=== PATIENT | female | born 1965 | race Asian ===

== ENCOUNTER 2021-06-27 21:09 | Emergency (ER) | payer OTHER ==
--- OUTSIDE RECORDS SUMMARY | 2021-06-27 21:11 | XMS REPORT | Continuity of Care Document ---
:1965 Author Organization [facility] t Address [address] [place] [address] Care Team Providers Name Role Phone Taylor Attending Clinician Unavailable Shield Attending Clinician Unavailable Shield Admitting Clinician Unavailable Payers Payer Name Policy Type Policy Number Effective Date Expiration Date Lenin tobar MIRIAM () [id number] 00:00:00 Problems This patient has no known problems. Allergies, Adverse Reactions, Alerts This patient has no known allergies or adverse reactions. Social History Smoking Status Start Date Stop Date Source [facility]oker [facility] Medications Ordered Filled Start Stop Current Ordering Indication Dosage Frequency Signature Comments Components Source Medication Medication Date Date Medication? Clinician (SIG) Name Name Kenalog 40 Kenalog 40 2020-0 No Kenalog 40 [place] mg/mL mg/mL 6-04 mg/mL da suspension suspension 14:18: suspension Medical for for 00 for Group injectionTa injectionTa injectionT ke 1 mL by ke 1 mL by kurtis 1 mL injection injection by route. route. injection route. Kenalog 40 Kenalog 40 No 1mL Kenalog 40 [place] mg/mL mg/mL mg/mL da suspension suspension suspension Medical for for for Group injection injection injection Take 1 mL Take 1 mL Take 1 mL by by by injection injection injection route. route. route. triamcinolo triamcinolo [facility]ol [facility] one da acetonide acetonide acetonide Medical 0.1 % 0.1 % 0.1 % Group topical topical topical cream APPLY cream APPLY cream A THIN A THIN APPLY A LAYER TO LAYER TO THIN LAYER THE THE TO THE AFFECTED AFFECTED AFFECTED AREA(S) BY AREA(S) BY AREA(S) BY TOPICAL TOPICAL TOPICAL ROUTE 2 ROUTE 2 ROUTE 2 TIMES PER TIMES PER TIMES PER DAY DAY DAY Immunizations Ordered Immunization Filled Immunization Date Status Commen ts Source Name Name influenza, influenza, 2018-12-11 Completed [facility] injectable, injectable, 00:00:00 [facility] p quadrivalent quadrivalent Vital Signs Vital Name Observation Time Observation Value Comments Source BP Diastolic 2019-08-08 00:00:00 78 mm[Hg] [facility] Height 2019-08-08 00:00:00 60 [in_i] [facility] BMI (Body Mass 2019-08-08 00:00:00 26.4 kg/m2 [facility] Medical Index) Group BP Systolic 2019-08-08 00:00:00 114 mm[Hg] [facility] Body Weight 2019-08-08 00:00:00 2160 [oz_av] [facility] BP Diastolic 2019-04-17 00:00:00 75 mm[Hg] [facility] Height 2019-04-17 00:00:00 60 [in_i] [facility] BMI (Body Mass 2019-04-17 00:00:00 26.4 kg/m2 [facility] Medical Index) Group BP Systolic 2019-04-17 00:00:00 132 mm[Hg] [facility] Body Weight 2019-04-17 00:00:00 2160 [oz_av] [facility] BP Diastolic 2018-10-04 00:00:00 78 mm[Hg] [facility] Height 2018-10-04 00:00:00 60 [in_i] [facility] BMI (Body Mass 2018-10-04 00:00:00 27.2 kg/m2 [facility] Medical Index) Group BP Systolic 2018-10-04 00:00:00 109 mm[Hg] [facility] Body Weight 2018-10-04 00:00:00 2232 [oz_av] [facility] Procedures This patient has no known procedures. Plan of Care Planned Activity Planned Date Details Comments Source Instructions [facility] Encounters Start End Encounter Admission Attending Care Care Encounter Source Date/Time Date/Time Type Type Clinicians Facility Department ID 2021-03-31 Outpatient Taylor, [facility] [id number] [facility] 14[facility]04:52 Charleen [id number] [facility] 2021-03-31 Outpatient Taylor, [facility] [id number] [facility] 14:04:40 Charleen [id number] [facility] 2020-12-29 2020-12-29 Outpatient [facility] [id number] [facility] [id number] [facility] 2020-02-18 2020-02-18 Outpatient [facility] [id number] [facility] 01:03:00 01:03:00 [facility] 2020-02-18 2020-02-18 Outpatient [facility] MMG [id number] [facility] 01:03:00 01:03:00 [facility] 2020-01-22 2020-01-22 Outpatient [facility] [id number] [facility] 02:30:00 02:30:00 [facility] 2020-01-14 2020-01-14 Outpatient [facility] MMG [id number] [facility] 01:03:00 01:03:00 [facility] 2019-08-27 2019-08-27 Outpatient [facility] MMG [id number] [place] 12:23:00 12:23:00 06[facility] 2019-08-08 2019-08-08 Outpatient [facility] MMG [id number] [place] 04:46:00 04:46:00 [facility] 2019-08-08 2019-08-08 Chloé VALENZUELA [place] - [id number] [facility] 00:00:00 00:00:00 Discovery juan Alexander FLAVOR EXTRACTOR: [address] [place] [address] , Ph. 2019-06-04 2019-06-04 [place] [id number] [place] 02:28:00 02:28:00 [id number] [facility] 2019-04-17 2019-04-17 [place] [id number] [place] 06:51:00 06:51:00 [id number] [facility] 2019-04-17 2019-04-17 Chloé VALENZUELA [place] - [id number] [facility] 00:00:00 00:00:00 Discovery juan Alexander FLAVOR EXTRACTOR: [address] [place] [address] [place] [address] , Ph. 2018-10-04 2018-10-04 Chloé DOYLE [place] - [id number] [facility] 00:00:00 00:00:00 Discovery juan Alexander FLAVOR EXTRACTOR: [address] [place] [address] [place] [address] , Ph. Results This patient has no known results.
[2021-06-27] MEDS ORDERED: MORPHINE 4 MG/ML SYR ONE (23:14)
[2021-06-27] MEDS ORDERED: KETOROLAC 30 MG/ML INJ ONE (23:15)
[2021-06-27] MEDS ORDERED: DIPHENHYDRAMINE 50 MG/ML VIAL ONE (23:15)
[2021-06-27] MEDS ORDERED: NA CHLORIDE 0.9% 1,000 ML ONE (23:15)
[2021-06-27] MEDS ORDERED: ONDANSETRON 4 MG/2 ML VIAL ONE (23:15)
--- NOTE | 2021-06-28 00:24 | ER ---
Nurse's Notes [facility] Name: Malou Astorga Age: 55 yrs Sex: Female : 1965 Arrival Date: 06/27/2021 Time: 21:09 Bed 19 Private MD: Diagnosis: Headache;Migraine without aura, not intractable Presentation: 06/27 21:54 Chief complaint: Patient states: I have a headache and I started having vomiting and kd3 diarrhea today. Coronavirus screen: Vaccine status: Patient reports receiving the 2nd dose of the covid vaccine. Ebola Screen: No symptoms or risks identified at this time. Initial Sepsis Screen: Does the patient meet any 2 criteria? No. Patient's initial sepsis screen is negative. Does the patient have a suspected source of infection? No. Patient's initial sepsis screen is negative. Risk Assessment: Do you want to hurt yourself or someone else? Patient reports no desire to harm self or others. Onset of symptoms was June 27, 2021. 21:54 Method Of Arrival: Ambulatory kd3 21:54 Acuity: JEFFERY 3 kd3 Triage Assessment: 21:56 General: Appears in no apparent distress. Behavior is calm, cooperative. Pain: kd3 Complains of pain in headache. GI: Reports diarrhea, vomiting, since today. 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 - Social history:: Smoking status: unknown. Screenin:57 Abuse screen: Denies threats or abuse. Denies injuries from another. Nutritional kd3 screening: No deficits noted. Tuberculosis screening: No symptoms or risk factors identified. Fall Risk None identified. Assessment: 21:57 General: Appears uncomfortable, Behavior is calm, cooperative. Pain: Complains of pain kd3 in headache. Neuro: Level of Consciousness is awake, alert, obeys commands, Oriented to person, place, time, situation. Cardiovascular: Patient's skin is warm and dry. Respiratory: Airway is patent is compromised Trachea midline Respiratory effort is even, unlabored, Respiratory pattern is regular, symmetrical. GI: Abdomen is flat. Vital Signs: 21:54 BP 112 / 67; Pulse 67; Resp 16; Temp 98.0; Pulse Ox 98% on R/A; kd3 21:54 Weight 58.51 kg; Height 5 ft. 4 in. (162.56 cm); Pain 10/10; kd3 06/28 01:12 BP 127 / 91; Pulse 68; Resp 17; Pulse Ox 99% on R/A; kd3 06/27 21:54 Body Mass Index 22.14 (58.51 kg, 162.56 cm) kd3 ED Course: 06/27 21:09 Patient arrived in ED. mr 21:37 Burton Powell MD is Attending Physician. kdr 21:54 Autumn Phan RN is Primary Nurse. kd3 21:56 Triage completed. kd3 21:56 Arm band placed on right wrist. kd3 21:57 Patient has correct armband on for positive identification. kd3 06/28 01:14 No provider procedures requiring assistance completed. Inserted saline lock: 20 gauge kd3 in right antecubital area, using aseptic technique. IV discontinued, intact, bleeding controlled, No redness/swelling at site. Pressure dressing applied. Administered Medications: 06/27 23:22 Drug: morphine 4 mg Route: IVP; Site: right antecubital; 3 06/28 01:14 Follow up: Response: No adverse reaction 3 06/27 23:45 Drug: Zofran (Ondansetron) 4 mg Route: IVP; Site: right antecubital; 3 06/28 01:14 Follow up: Response: No adverse reaction 3 06/27 23:45 Drug: Ketorolac 15 mg Route: IVP; Site: right antecubital; 06/28 01:14 Follow up: Response: No adverse reaction 06/27 23:45 Drug: Benadryl (diphenhydrAMINE) 12.5 mg Route: IVP; Site: right antecubital; 3 06/28 01:14 Follow up: Response: No adverse reaction 3 06/27 23:46 Drug: NS 0.9% 1000 ml Route: IV; Rate: 1 bolus; Site: right antecubital; 06/28 01:14 Follow up: Response: No adverse reaction; IV Status: Completed infusion kd3 Outcome: 00:23 Discharge ordered by . kdr 01:14 Discharged to home ambulatory. kd3 01:14 Condition: stable 01:14 Discharge instructions given to patient, Instructed on discharge instructions, follow up and referral plans. medication usage, Demonstrated understanding of instructions, follow-up care, medications, Prescriptions given X 3. 01:15 Patient left the ED. kd3 Signatures: Burton Powell MD MD kdr Rivera, Mary mr Doucette, Kyli, RN RN kd3
--- NOTE | 2021-06-28 00:24 | EDPHYS ---
Physician Documentation [facility] Name: Malou Astorga Age: 55 yrs Sex: Female : 1965 Arrival Date: 06/27/2021 Time: 21:09 Bed 19 Private MD: ED Physician Burton Powell HPI: 06/28 05:12 This 55 yrs old Female presents to ER via Ambulatory with complaints of Vomiting. kdr 05:13 Patient began to have a headache early yesterday morning and since then started to have kdr some nausea vomiting and diarrhea. The headache is similar to prior headaches that she has had. This not significantly different in any way. The current symptoms along with this headache the nausea, vomiting and diarrhea not atypical for her presentation. He has no other complaints. She does not appear toxic but certainly is uncomfortable.. Onset: The symptoms/episode began/occurred yesterday. Severity of symptoms: At their worst the symptoms were moderate severe incapacitating in the emergency department the symptoms are unchanged. The patient has experienced similar episodes in the past, several times. The patient has not recently seen a physician. 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 - Social history:: Smoking status: unknown. ROS: 06/28 05:13 Constitutional: Negative for fever, chills, and weight loss, Eyes: Negative for injury, kdr pain, redness, and discharge, ENT: Negative for injury, pain, and discharge, Neck: Negative for injury, pain, and swelling, Cardiovascular: Negative for chest pain, palpitations, and edema, Respiratory: Negative for shortness of breath, cough, wheezing, and pleuritic chest pain, Back: Negative for injury and pain, : Negative for injury, bleeding, discharge, and swelling, MS/Extremity: Negative for injury and deformity, Skin: Negative for injury, rash, and discoloration, Psych: Negative for depression, anxiety, suicide ideation, homicidal ideation, and hallucinations, Allergy/Immunology: Negative for hives, rash, and allergies, Endocrine: Negative for neck swelling, polydipsia, polyuria, polyphagia, and marked weight changes, Hematologic/Lymphatic: Negative for swollen nodes, abnormal bleeding, and unusual bruising. Abdomen/GI: Positive for abdominal pain, nausea, vomiting, and diarrhea, Negative for constipation, abdominal cramps, abdominal distension, black/tarry stool, rectal pain, rectal bleeding. Neuro: Positive for headache, Negative for altered mental status, dizziness, gait disturbance, seizure activity, speech changes, syncope, tinnitus, tremor, visual changes. Exam: 05:13 Constitutional: This is a well developed, well nourished patient who is awake, alert, kdr and in mild distress. Head/Face: Normocephalic, atraumatic. Eyes: Pupils equal round and reactive to light, extra-ocular motions intact. Lids and lashes normal. Conjunctiva and sclera are non-icteric and not injected. Cornea within normal limits. Periorbital areas with no swelling, redness, or edema. Neck: Trachea midline, no thyromegaly or masses palpated, and no cervical lymphadenopathy. Supple, full range of motion without nuchal rigidity, or vertebral point tenderness. No Meningismus. Chest/axilla: Normal chest wall appearance and motion. Nontender with no deformity. No lesions are appreciated. Cardiovascular: Regular rate and rhythm with a normal S1 and S2. No gallops, murmurs, or rubs. Normal PMI, no JVD. No pulse deficits. Respiratory: Lungs have equal breath sounds bilaterally, clear to auscultation and percussion. No rales, rhonchi or wheezes noted. No increased work of breathing, no retractions or nasal flaring. Abdomen/GI: Soft, non-tender, with normal bowel sounds. No distension or tympany. No guarding or rebound. No evidence of tenderness throughout. Back: No spinal tenderness. No costovertebral tenderness. Full range of motion. Skin: Warm, dry with normal turgor. Normal color with no rashes, no lesions, and no evidence of cellulitis. MS/ Extremity: Pulses equal, no cyanosis. Neurovascular intact. Full, normal range of motion. Neuro: Awake and alert, GCS 15, oriented to person, place, time, and situation. Cranial nerves II-XII grossly intact. Motor strength 5/5 in all extremities. Sensory grossly intact. Cerebellar exam normal. Normal gait. Psych: Awake, alert, with orientation to person, place and time. Behavior, mood, and affect are within normal limits. Vital Signs: 06/27 21:54 BP 112 / 67; Pulse 67; Resp 16; Temp 98.0; Pulse Ox 98% on R/A; kd3 21:54 Weight 58.51 kg; Height 5 ft. 4 in. (162.56 cm); Pain 10/10; 3 06/28 01:12 BP 127 / 91; Pulse 68; Resp 17; Pulse Ox 99% on R/A; kd3 06/27 21:54 Body Mass Index 22.14 (58.51 kg, 162.56 cm) 3 MDM: 00:23 Patient medically screened. kdr 05:13 Data reviewed: vital signs, nurses notes. Counseling: I had a detailed discussion with kdr the patient and/or guardian regarding: the historical points, exam findings, and any diagnostic results supporting the discharge/admit diagnosis, lab results, radiology results, the need for outpatient follow up. ED course: Patient improved greatly with the interventions given. Her headache completely resolved. She was discharged in good condition and happy with the care provided and the plan for discharge and follow-up. Administered Medications: 06/27 23:22 Drug: morphine 4 mg Route: IVP; Site: right antecubital; 06/28 01:14 Follow up: Response: No adverse reaction [facility] 06/27 23:45 Drug: Zofran (Ondansetron) 4 mg Route: IVP; Site: right antecubital; 06/28 01:14 Follow up: Response: No adverse reaction [facility] 06/27 23:45 Drug: Ketorolac 15 mg Route: IVP; Site: right antecubital; 06/28 01:14 Follow up: Response: No adverse reaction [facility] 06/27 23:45 Drug: Benadryl (diphenhydrAMINE) 12.5 mg Route: IVP; Site: right antecubital; 06/28 01:14 Follow up: Response: No adverse reaction [facility] 06/27 23:46 Drug: NS 0.9% 1000 ml Route: IV; Rate: 1 bolus; Site: right antecubital; 06/28 01:14 Follow up: Response: No adverse reaction; IV Status: Completed infusion kd3 Disposition Summary: 06/28/21 00:23 Discharge Ordered Location: Home kdr Problem: new kdr Symptoms: have improved kdr Condition: Stable kdr Diagnosis - Headache kdr - Migraine without aura, not intractable kdr Followup: kdr - With: Private Physician - When: 2 - 3 days - Reason: If symptoms return, Further diagnostic work-up, Recheck today's complaints, Continuance of care, Re-evaluation by your physician Discharge Instructions: - Discharge Summary Sheet kdr - Migraine Headache, [id number] kdr - Sinus Headache, [id number] kdr Forms: - Medication Reconciliation Form kdr - Thank You Letter kdr - Antibiotic Education kdr Prescriptions: - Zithromax Z-Lopez 250 mg Oral Tablet - take 1 tablet by ORAL route as directed for 5 days Day 1 - take two (2) tablets kdr one time. Day 2, 3, 4 , 5 take one (1) tablet once daily.; 6 tablet; Refills: 0, Product Selection Permitted - Zofran 4 mg Oral Tablet - take 1 tablet by ORAL route every 4-6 hours As needed; 12 tablet; Refills: 0, kdr Product Selection Permitted - Tramadol 50 mg Oral Tablet - take 1 tablet by ORAL route every 8 hours As needed as needed; 6 tablet; kdr Refills: 0, Product Selection Permitted Signatures: Burton Powell MD MD kdr Autumn Phan RN RN kd3
[2021-06-28 01:20] VITALS: TEMP 98
[2021-06-28 01:21] VITALS: BP 127/91; O2SAT 99
== END 2021-06-28 01:15 | disposition home or self-care (01) ==
LOC: ER 21:09
DX: G43.909 Migraine, unspecified, not intractable, without status migrainosus (principal)
CPT/HCPCS: 96361; 96375; 96374; 99283; J1200; J7030; J2405

== ENCOUNTER 2022-07-02 10:21 | Emergency (ER) | payer OTHER ==
--- OUTSIDE RECORDS SUMMARY | 2022-07-02 10:25 | XMS REPORT | Continuity of Care Document ---
:1965 Author Organization [facility] t Address [address] [place] [address] Care Team Providers Name Role Phone Brandon Charleen Attending Clinician Unavailable Shield Attending Clinician Unavailable Shield Admitting Clinician Unavailable Payers Payer Name Policy Type Policy Number Effective Date Expiration Date S amadou MIRIAM [id number] 2003 () 00:00:00 C1 [id number] [facility] C1 [id number] [facility] Problems Condition Condition Condition Status Onset Resolution Last Treating Co mments Source Name Details Category Date Date Treatment Clinician Date [id number] Mixed Problem Active [facility] Allergies, Adverse Reactions, Alerts This patient has no known allergies or adverse reactions. Social History Social Habit Start Date Stop Date Quantity Comments Source Sex Assigned At Com mon [facility] History of Tobacco Use Co mmon [facility] Smoking Status Start Date Stop Date Source Never Smoker [facility] Medications Ordered Filled Start Stop Current Ordering Indication Dosage Frequency Signature Comments Components Source Medication Medication Date Date Medication? Clinician (SIG) Name Name Clobetasol Clobetasol 2020-03- No 1{appli BID Clobetasol Propionate Propionate 0-27 11-23 cation} Propionate 0.05 % 0.05 % 00:00: 00:00 0.05 % 00 :00 Clobetasol Clobetasol 2020-03- No BID Clobetasol Prop-Niacin Prop-Niacin 0-25 11-07 Prop-Niaci amide amide 00:00: 00:00 namide 0.05-4 % 0.05-4 % 00 :00 0.05-4 % Clobetasol Clobetasol 2020-03- No BID Clobetasol Prop-Niacin Prop-Niacin 0-25 11-07 Prop-Niaci amide amide 00:00: 00:00 namide 0.05-4 % 0.05-4 % 00 :00 0.05-4 % Kenalog 40 Kenalog 40 2020-0 No Kenalog 40 [place] mg/mL mg/mL 6-04 mg/mL da suspension suspension 14:18: suspension Medical for for 00 for Group injectionTa injectionTa injectionT ke 1 mL by ke 1 mL by kurtis 1 mL injection injection by route. route. injection route. tiZANidine tiZANidine No 1{table BID tiZANidine HCl 2 MG HCl 2 MG t_as_ne HCl 2 MG eded} tiZANidine tiZANidine No 1{table BID tiZANidine HCl 2 MG HCl 2 MG t_as_ne HCl 2 MG eded} Kenalog 40 Kenalog 40 No 1mL Kenalog 40 [place] mg/mL mg/mL mg/mL da suspension suspension suspension Medical for for for Group injection injection injection Take 1 mL Take 1 mL Take 1 mL by by by injection injection injection route. route. route. triamcinolo triamcinolo No triamcinol [place] ne ne one da acetonide acetonide acetonide [...] Source Name Name influenza, influenza, 2018-12-11 Completed [facility] injectable, injectable, 00:00:00 Medical Grou p quadrivalent quadrivalent Vital Signs Vital Name Observation Time Observation Value Comments Source height 2020 14:20:00 61 [in_i] [facility] weight 2020 14:20:00 132.4 [lb_av] [facility] temperature 2020 14:20:00 97.4 [degF] [facility] bmi 2020 14:20:00 25.01 kg/m2 [facility] oximetry 2020 14:20:00 100 % [facility] respiratory rate 2020 14:20:00 16 /min Comm on [facility] blood pressure 2020 14:20:00 132 mm[Hg] Common [facility] - systolic [facility] blood pressure 2020 14:20:00 68 mm[Hg] Common [facility] - diastolic [facility] BP Diastolic 2019-08-08 00:00:00 78 mm[Hg] [facility] Height 2019-08-08 00:00:00 60 [in_i] [facility] BMI (Body Mass 2019-08-08 00:00:00 26.4 kg/m2 [facility] Medical Index) Group BP Systolic 2019-08-08 00:00:00 114 mm[Hg] [facility] Body Weight 2019-08-08 00:00:00 2160 [oz_av] [facility] BP Diastolic 2019-04-17 00:00:00 75 mm[Hg] [facility] Height 2019-04-17 00:00:00 60 [in_i] [facility] BMI (Body Mass 2019-04-17 00:00:00 26.4 kg/m2 [facility] 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 Plan of Care Planned Activity Planned Date Details Comments Source Instructions [facility] Encounters Start End Encounter Admission Attending Care Care Encounter Source Date/Time Date/Time Type Type Clinicians Facility Department ID 2021-03-31 Outpatient Taylor, STLMLC STLMLC [id number] Common 14:04:52 Charleen [id number] [facility] 2021-03-31 Outpatient Taylor, STLMLC STLC [id number] Common 14:04:40 Charleen [id number] [facility] 2022-05-18 2022-05-18 Outpatient Shield MMG MMG [id number] [place] 00:00:00 00:00:00 0315 Medical [facility] 2020-12-29 2020-12-29 (TEL) STLMLC STLMLC [id number] Co mmon 00:00:00 00:00:00 [facility] 2020 2020 OFFICE STLC STLC [id number] Co mmon 00:00:00 00:00:00 VISIT NEW Spir it PT LEVEL 4 [facility] 2020-02-18 2020-02-18 Outpatient Shield MMG MMG [id number] [place] 01:03:00 01:03:00 [facility] 2020-02-18 2020-02-18 Outpatient Shield MMG MMG [id number] [place] 01:03:00 01:03:00 [facility] 2020-01-22 2020-01-22 Outpatient Shield MMG MMG [id number] [place] 02:30:00 02:30:00 [facility] 2020-01-14 2020-01-14 Outpatient Shield MMG MMG [id number] [place] 01:03:00 01:03:00 [facility] 2019-08-27 2019-08-27 Outpatient Shield MMG MMG [id number] [place] 12:23:00 12:23:00 0623 [facility] 2019-08-08 2019-08-08 Outpatient Shield MMG MMG [id number] [place] 04:46:00 04:46:00 0604 [facility] 2019-08-08 2019-08-08 Chloé MMG [place] - [id number] M [facility] 00:00:00 00:00:00 Discovery 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 2018-10-04 2018-10-04 Chloé MMG [place] - [id number] M [facility] 00:00:00 00:00:00 Discovery Benjamin da BURNISHING MACHINE OPERATOR: [address] [place] [address] [place] [address] , Ph. Results This patient has no known results.
[2022-07-02] MEDS ORDERED: NA CHLORIDE 0.9% 250 ML ONE (10:57)
[2022-07-02] MEDS ORDERED: NA CHLORIDE 0.9% 1,000 ML ONE (10:57)
[2022-07-02] MEDS ORDERED: PROMETHAZINE INJ 25 MG/ML AMP ONE (10:57)
[2022-07-02] MEDS ORDERED: MECLIZINE HCL 12.5 MG TAB ONE (11:50)
--- NOTE | 2022-07-02 12:47 | ER ---
Nurse's Notes [facility] Name: Malou Astroga Age: 56 yrs Sex: Female : 1965 Arrival Date: 07/02/2022 Time: 10:21 Bed 7 Private MD: Diagnosis: Dizziness and giddiness;Benign paroxysmal vertigo, right ear Presentation: 07/02 10:32 Chief complaint: Dizziness since last night, N/V today. Denies pain. Coronavirus hb screen: At this time, the client does not indicate any symptoms associated with coronavirus-19. Ebola Screen: No symptoms or risks identified at this time. Initial Sepsis Screen: Does the patient meet any 2 criteria? No. Patient's initial sepsis screen is negative. Does the patient have a suspected source of infection? No. Patient's initial sepsis screen is negative. Risk Assessment: Do you want to hurt yourself or someone else? Patient reports no desire to harm self or others. Onset of symptoms was July 01, 2022. 10:32 Method Of Arrival: Wheelchair hb 10:32 Acuity: JEFFERY 3 hb Historical: - Allergies: 10:34 No Known Allergies; hb - PMHx: 10:34 None; aa5 Screenin:15 [facility] ED Fall Risk Assessment (Adult) History of falling in the last 3 months, aa5 including since admission No falls in past 3 months (0 pts) Confusion or Disorientation No (0 pts) Intoxicated or Sedated No (0 pts) Impaired Gait No (0 pts) Mobility Assist Device Used No (0 pt) Altered Elimination No (0 pt) Score/Fall Risk Level 0 - 2 = Low Risk. Abuse screen: Denies threats or abuse. Nutritional screening: No deficits noted. Tuberculosis screening: No symptoms or risk factors identified. Assessment: 11:00 General: Appears uncomfortable, Behavior is calm, cooperative. Pain: Denies pain. aa5 Neuro: Level of Consciousness is awake, alert, obeys commands, Oriented to person, place, time, situation, Alteration Tailor are equal bilaterally Moves all extremities. Gait is steady, Speech soft spoken . Facial symmetry appears normal, Pupils are PERRLA, Reports dizziness. Cardiovascular: Heart tones S1 S2 present Rhythm is regular. Respiratory: Airway is patent Respiratory effort is even, unlabored, Respiratory pattern is regular, symmetrical. GI: Abdomen is round non-distended, Bowel sounds present X 4 quads. Abd is soft and non tender X 4 quads. Reports nausea, vomiting. : No signs and/or symptoms were reported regarding the genitourinary system. EENT: No signs and/or symptoms were reported regarding the EENT system. Derm: Skin is pink, warm \T\ dry. Musculoskeletal: Range of motion: intact in all extremities. 11:00 Reassessment: Warm blankets provided and light dimmed for comfort. . aa5 11:46 Reassessment: Patient is alert, oriented x 3, equal unlabored respirations, skin aa5 warm/dry/pink. Pt reports nausea has improved but dizziness has not. Pt also reports feeling restless, provider was notified. . 12:40 Reassessment: Patient is alert, oriented x 3, equal unlabored respirations, skin aa5 warm/dry/pink. Pt denies nausea, reports dizziness has only slightly improved. Provider notified. . General: Behavior is calm. 12:54 Reassessment: To bedside to administer medications. Pt ambulatory to restroom with aa5 family. . 13:40 Reassessment: Patient is alert, oriented x 3, equal unlabored respirations, skin aa5 warm/dry/pink. Vital Signs: 10:32 BP 118 / 81; Pulse 61; Resp 16; Temp 97.8(TE); Pulse Ox 99% on R/A; Weight 65.77 kg; hb Height 4 ft. 11 in. ; Pain 0/10; 13:00 BP 105 / 67; Pulse 64; Resp 17; Pulse Ox 98% ; aa5 10:32 Body Mass Index 29.29 (65.77 kg, 149.86 cm) hb 10:32 Pain Scale: Adult hb Stratford Coma Score: 10:40 Eye Response: spontaneous(4). Motor Response: obeys commands(6). Verbal Response: snw oriented(5). Total: 15. NIH Stroke Scale Scores: 10:40 NIHSS Score: 0 snw ED Course: 10:22 Patient arrived in ED. ts1 10:24 Luis Alberto Joseph DO is Attending Physician. ms3 10:34 Triage completed. hb 10:34 Lolita Betts, RN is Primary Nurse. aa5 10:34 Arm band placed on. hb 10:41 Wood, Negar, CHIEF DATA OFFICER-C is PHCP. ms3 11:00 Patient has correct armband on for positive identification. Bed in low position. Call aa5 light in reach. Side rails up X 1. Adult w/ patient. Pulse ox on. NIBP on. 11:10 Missed attempt(s): 22 gauge in left upper arm. Bleeding controlled, band aid applied, aa5 catheter tip intact. 11:12 Inserted saline lock: 20 gauge in right antecubital area, using aseptic technique. aa5 13:40 No provider procedures requiring assistance completed. IV discontinued, intact, aa5 bleeding controlled, No redness/swelling at site. Pressure dressing applied. Administered Medications: 11:14 Drug: NS 0.9% IV 1000 ml Route: IV; Rate: 125 ml/hr; Site: right antecubital; aa5 13:40 Follow up: IV Status: Order to discontinue infusion aa5 11:14 Drug: Promethazine IVP 25 mg Route: IVP; Site: right antecubital; aa5 11:47 Follow up: Pt reports feeling restless, provider notified. aa5 11:14 Drug: NS 0.9% IV 250 ml Route: IV; Rate: bolus; Site: right antecubital; aa5 11:47 Follow up: IV Status: Completed infusion; IV Intake: 250ml aa5 11:47 Drug: Meclizine PO 50 mg Route: PO; aa5 12:40 Follow up: Response: No adverse reaction aa5 12:57 Drug: Diazepam PO 5 mg Route: PO; aa5 13:40 Follow up: Response: No adverse reaction aa5 Medication: 11:15 VIS not applicable for this client. aa5 Intake: 11:47 IV: 250ml; Total: 250ml. aa5 Outcome: 12:47 Discharge ordered by MD. vidal 13:40 Discharged to home via wheelchair, with family. aa5 13:40 Condition: stable 13:40 Discharge instructions given to patient, Instructed on discharge instructions, follow up and referral plans. medication usage, Demonstrated understanding of instructions, follow-up care, medications, Prescriptions given X 2. 13:44 Patient left the ED. aa5 NIH Stroke Scale - NIH Stroke Score Date: 07/02/2022 Time: 10:40 Total Score = 0 10. Dysarthria (speech clarity - read or repeat words) - 0(Normal) 11. Extinction and Inattention (visual/tactile/auditory/spatial/personal) - 0(No abnormality) 1a. Level of Consciousness (LOC) - 0(Alert) 1b. Level of Consciousness (LOC) (Month \T\ Age) - 0(Both) 1c. LOC Commands (Open \T\ Closes Eyes/Tar Heater Operator) - 0(Both) 2. Best Gaze (Lateral Gaze Paresis) - 0(Normal) 3. Visual Field Loss - 0(No visual loss) 4. Facial Palsy - 0(Normal) 5a. Left Arm: Motor (10-second hold) - 0(No drift) 5b. Right Arm: Motor (10-second hold) - 0(No drift) 6a. Left Leg: Motor (5-second hold - always test supine) - 0(No drift) 6b. Right Leg: Motor (5-second hold - always test supine) - 0(No drift) 7. Limb Ataxia (finger/nose \T\ heel/garcia - test with eyes open) - 0(Absent) 8. Sensory Loss (pinprick arms/legs/face) - 0(Normal) 9. Best Language: Aphasia (description/naming/reading) - 0(No aphasia) Initials: snw Signatures: Negar Wood, CHIEF DATA OFFICER-C CHIEF DATA OFFICER-Csnw Lolita Betts, RN RN aa5 Sunni Cunningham, MORE RN Luis Alberto Joseph, DO ms3 Dorothea Moya, GLADIS PAS ts1
--- NOTE | 2022-07-02 12:47 | EDPHYS ---
Physician Documentation [facility] Name: Malou Astorga Age: 56 yrs Sex: Female : 1965 Arrival Date: 07/02/2022 Time: 10:21 Bed 7 Private MD: ED Physician Luis Alberto Joseph HPI: 07/02 10:43 This 56 yrs old Female presents to ER via Wheelchair with complaints of Diarrhea, snw Nausea/Vomiting, MIGRANES. 10:43 The patient presents to the emergency department with nausea, vomiting, dizziness. snw Onset: The symptoms/episode began/occurred suddenly, this morning. Possible causes: unknown. The symptoms are aggravated by movement, The symptoms are alleviated by nothing. Severity of symptoms: At their worst the symptoms were moderate. The patient has experienced a previous episode, pt states last episode was caused by high cholesterol. The patient has been recently seen by a physician:. Historical: - Allergies: 10:34 No Known Allergies; hb - PMHx: 10:34 None; aa5 ROS: 10:42 Eyes: Negative for injury, pain, redness, and discharge, ENT: Negative for injury, snw pain, and discharge, Neck: Negative for injury, pain, and swelling, Cardiovascular: Negative for chest pain, palpitations, and edema, Respiratory: Negative for shortness of breath, cough, wheezing, and pleuritic chest pain. 10:42 Back: Negative for injury and pain, : Negative for injury, bleeding, discharge, and swelling, MS/Extremity: Negative for injury and deformity, Skin: Negative for injury, rash, and discoloration, Psych: Negative for depression, anxiety, suicide ideation, homicidal ideation, and hallucinations. 10:42 Constitutional: Positive for malaise. 10:42 Abdomen/GI: Positive for nausea and vomiting. 10:42 Neuro: Positive for dizziness, awoke pt in the middle of the night. Exam: 10:40 Head/Face: Normocephalic, atraumatic. ENT: Nares patent. No nasal discharge, no snw septal abnormalities noted. Tympanic membranes are normal and external auditory canals are clear. Oropharynx with no redness, swelling, or masses, exudates, or evidence of obstruction, uvula midline. Mucous membranes moist. Neck: Trachea midline, no thyromegaly or masses palpated, and no cervical lymphadenopathy. Supple, full range of motion without nuchal rigidity, or vertebral point tenderness. No Meningismus. Chest/axilla: Normal chest wall appearance and motion. Nontender with no deformity. No lesions are appreciated. Cardiovascular: Regular rate and rhythm with a normal S1 and S2. No gallops, murmurs, or rubs. Normal PMI, no JVD. No pulse deficits. Respiratory: Lungs have equal breath sounds bilaterally, clear to auscultation and percussion. No rales, rhonchi or wheezes noted. No increased work of breathing, no retractions or nasal flaring. Abdomen/GI: Soft, non-tender, with normal bowel sounds. No distension or tympany. No guarding or rebound. No evidence of tenderness throughout. Back: No spinal tenderness. No costovertebral tenderness. Full range of motion. 10:40 Skin: Warm, dry with normal turgor. Normal color with no rashes, no lesions, and no evidence of cellulitis. MS/ Extremity: Pulses equal, no cyanosis. Neurovascular intact. Full, normal range of motion. 10:40 Constitutional: The patient appears listless, does not want to follow commands but can perform on repeated requests 10:40 Eyes: Nystagmus: to right gaze. 10:40 Psych: Behavior/mood is uncooperative, Affect is flat, Oriented to person, place, time. Vital Signs: 10:32 BP 118 / 81; Pulse 61; Resp 16; Temp 97.8(TE); Pulse Ox 99% on R/A; Weight 65.77 kg; hb Height 4 ft. 11 in. ; Pain 0/10; 13:00 BP 105 / 67; Pulse 64; Resp 17; Pulse Ox 98% ; aa5 10:32 Body Mass Index 29.29 (65.77 kg, 149.86 cm) hb 10:32 Pain Scale: Adult hb NIH Stroke Scale Scores: 10:40 NIHSS Score: 0 snw Una Coma Score: 10:40 Eye Response: spontaneous(4). Motor Response: obeys commands(6). Verbal Response: snw oriented(5). Total: 15. MDM: 10:47 Patient medically screened. snw 11:03 Differential diagnosis: CVA, idiopathic dizziness, near-syncope, TIA, vertigo. Data snw reviewed: vital signs, nurses notes. I considered the following discharge prescriptions or medication management in the emergency department Medications were administered in the Emergency Department. See MAR. Care significantly affected by the following chronic conditions: hyperlipidemia. Counseling: I had a detailed discussion with the patient and/or guardian regarding: the historical points, exam findings, and any diagnostic results supporting the discharge/admit diagnosis, the presence of at least one elevated blood pressure reading (>120/80) during this emergency department visit, the need for outpatient follow up, for definitive care. Refusal of service: The patient/guardian displays adequate decision making capability and despite a detailed discussion of alternatives, benefits, risks, and consequences refuses: CT Scan, pt refuses CT, cannot r/o basilar infarct as pt states this happened before secondary to hyperlipidemia. Pt declines. Special discussion: I have referred the patient to see his PCP for further evaluation of high blood pressure. Based on the history and exam findings, there is no indication for further emergent testing or inpatient evaluation. I discussed with the patient/guardian the need to see the neurologist for further evaluation of the symptoms. I discussed with the patient/guardian the need to see the primary care provider for further evaluation of the symptoms. 07/02 10:40 Order name: [facility]. Order: Draw rainbow and hold with IV start; Complete Time: 11:13 snw Administered Medications: 11:14 Drug: NS 0.9% IV 1000 ml Route: IV; Rate: 125 ml/hr; Site: right antecubital; aa5 13:40 Follow up: IV Status: Order to discontinue infusion aa5 11:14 Drug: Promethazine IVP 25 mg Route: IVP; Site: right antecubital; aa5 11:47 Follow up: Pt reports feeling restless, provider notified. aa5 11:14 Drug: NS 0.9% IV 250 ml Route: IV; Rate: bolus; Site: right antecubital; aa5 11:47 Follow up: IV Status: Completed infusion; IV Intake: 250ml aa5 11:47 Drug: Meclizine PO 50 mg Route: PO; aa5 12:40 Follow up: Response: No adverse reaction aa5 12:57 Drug: Diazepam PO 5 mg Route: PO; aa5 13:40 Follow up: Response: No adverse reaction aa5 Disposition: 10:39 Co-signature as Attending Physician, Luis Alberto Joseph DO PA/AUTOPSY PATHOLOGIST's history reviewed, patient ms3 interviewed, and examined. HPI: 56-year-old female presents for dizziness that began last night. Patient states the dizziness is worse with head movement. Patient endorses nausea and vomiting. My personal exam of patient reveals: On exam patient is alert and orient x4, no apparent distress. Heart rate and rhythm are regular without murmurs rubs or gallops. Lungs are clear auscultation bilaterally. Skin is dry and without rashes. Abdomen is nontender to palpation with bowel sounds present. [id number] is intact bilaterally, upper extremity and lower extremity strength are equal. Patient has right beating nystagmus. Discussed case with Negar Wood, nurse practitioner, and agree with plan. 13:10 Co-signature as Attending Physician, Luis Alberto SINGH/AUTOPSY PATHOLOGIST's history reviewed, patient ms3 interviewed, and examined. I agree with assessment and care plan and confirm the diagnosis (es) above. Disposition Summary: 07/02/22 12:47 Discharge Ordered Location: Home snw Condition: Stable snw Diagnosis - Dizziness and giddiness snw - Benign paroxysmal vertigo, right ear snw Followup: snw - With: Emergency Department - When: As needed - Reason: Worsening of condition Followup: snw - With: Private Physician - When: 2 - 3 days - Reason: Recheck today's complaints, Continuance of care, Re-evaluation by your physician Discharge Instructions: - Discharge Summary Sheet snw - Vertigo snw - How to Perform the Tonny Maneuver snw Forms: - Medication Reconciliation Form snw - Thank You Letter snw - Antibiotic Education snw - Prescription Opioid Use snw - Work release form aa5 Prescriptions: - Meclizine 25 mg Oral Tablet - take 1 tablet by ORAL route every 8 hours As needed; 30 tablet; Refills: 0, snw Product Selection Permitted - promethazine 25 mg Oral Tablet - take 1 tablet by ORAL route every 6 hours As needed; 20 tablet; Refills: 0, snw Product Selection Permitted NIH Stroke Scale - NIH Stroke Score Date: 07/02/2022 Time: 10:40 Total Score = 0 10. Dysarthria (speech clarity - read or repeat words) - 0(Normal) 11. Extinction and Inattention (visual/tactile/auditory/spatial/personal) - 0(No abnormality) 1a. Level of Consciousness (LOC) - 0(Alert) 1b. Level of Consciousness (LOC) (Month \T\ Age) - 0(Both) 1c. LOC Commands (Open \T\ Closes Eyes/Instrument Lens Grinder Apprentice) - 0(Both) 2. Best Gaze (Lateral Gaze Paresis) - 0(Normal) 3. Visual Field Loss - 0(No visual loss) 4. Facial Palsy - 0(Normal) 5a. Left Arm: Motor (10-second hold) - 0(No drift) 5b. Right Arm: Motor (10-second hold) - 0(No drift) 6a. Left Leg: Motor (5-second hold - always test supine) - 0(No drift) 6b. Right Leg: Motor (5-second hold - always test supine) - 0(No drift) 7. Limb Ataxia (finger/nose \T\ heel/garcia - test with eyes open) - 0(Absent) 8. Sensory Loss (pinprick arms/legs/face) - 0(Normal) 9. Best Language: Aphasia (description/naming/reading) - 0(No aphasia) Initials: snw Signatures: Dispatcher [employer] EDMS Negar Wood, FOLDING MACHINE TENDER-C FOLDING MACHINE TENDER-Csnw Lolita Betts, RN RN aa5 Sunni Cunningham, MORE RN hb Luis Alberto Joseph, DO ms3 Corrections: (The following items were deleted from the chart) 11:04 10:40 Head Brain Wo [id number] ordered. EDMS EDMS
[2022-07-02] MEDS ORDERED: DIAZEPAM 5 MG TABLET ONE (12:55)
[2022-07-02 13:48] VITALS: BP 118/81; TEMP 97.8; O2SAT 99
== END 2022-07-02 13:44 | disposition home or self-care (01) ==
LOC: ER 10:21
DX: H81.11 Benign paroxysmal vertigo, right ear (principal); R11.2 Nausea with vomiting, unspecified
CPT/HCPCS: J2550; J8597; J7050; J7030; 96361; 96365; 96375; 99284